=== PATIENT | female | born 1965 | race Caucasian/White ===

== ENCOUNTER 2024-08-11 14:29 | Emergency (ER) | payer MEDICAID ==
[~2024-08-11] VITALS: Ht 167.6 cm; Wt 72.6 kg
[2024-08-11 14:38] VITALS: BP_SYST 125; PULSE 85; RESP 22; TEMP 98.3; O2SAT 98
[2024-08-11] MEDS ORDERED: CEPH-548 PO (16:22)
[2024-08-11] MEDS ORDERED: CLIN-142 PO (16:22)
[2024-08-12] MEDS ORDERED: IBUP-1971 PO (22:46)
[2024-08-12] MEDS ORDERED: VIS25 PO (22:46)
== END 2024-08-11 17:00 | disposition home or self-care (01) ==
LOC: SED 14:29
DX: L03.113 Cellulitis of right upper limb (principal); F17.200 Nicotine dependence, unspecified, uncomplicated; F15.90 Other stimulant use, unspecified, uncomplicated; I10 Essential (primary) hypertension; Z71.6 Tobacco abuse counseling; Z79.2 Long term (current) use of antibiotics
CPT/HCPCS: 99284

== ENCOUNTER 2024-08-12 19:39 | Emergency (ER) | payer MEDICAID ==
[~2024-08-12] VITALS: Ht 154.9 cm; Wt 74.8 kg
[~2024-08-12 19:39] MED LIST: CEPH-548 PO; CLIN-142 PO
[2024-08-12 20:18] VITALS: BP_SYST 113; PULSE 68; RESP 19; TEMP 98.1; O2SAT 99
[2024-08-12] MEDS ORDERED: VIS25 PO (22:46)
[2024-08-12] MEDS ORDERED: IBUP-1971 PO (22:46)
[2024-08-12] MEDS: IBUPROFEN 800 MG TABLET PO ONE (22:52)
[2024-08-12 23:45] VITALS: BP_SYST 126; PULSE 68; RESP 18; TEMP 98.2; O2SAT 97
== END 2024-08-12 22:57 | disposition home or self-care (01) ==
LOC: SED 19:39
DX: L03.113 Cellulitis of right upper limb (principal); F41.9 Anxiety disorder, unspecified; I10 Essential (primary) hypertension; Z79.899 Other long term (current) drug therapy; Z79.2 Long term (current) use of antibiotics
CPT/HCPCS: 99283

== ENCOUNTER 2024-09-09 18:23 | Emergency (ER) | payer MEDICAID ==
[~2024-09-09] VITALS: Ht 154.9 cm; Wt 72.6 kg
[~2024-09-09 18:23] MED LIST changes: +IBUP-1971 PO; +VIS25 PO
[2024-09-09 18:48] VITALS: BP_SYST 125; PULSE 60; RESP 18; TEMP 98.2; O2SAT 99
[2024-09-09] MEDS ORDERED: TRAM50TA2 PO (20:40)
[2024-09-09] MEDS ORDERED: NAPR-688 PO (20:42)
[2024-09-09 20:53] VITALS: BP_SYST 133; PULSE 61; RESP 16; TEMP 96.1; O2SAT 99
== END 2024-09-09 20:53 | disposition home or self-care (01) ==
LOC: SED 18:23
DX: M67.813 Other specified disorders of tendon, right shoulder (principal); I10 Essential (primary) hypertension; Z79.899 Other long term (current) drug therapy; Z79.2 Long term (current) use of antibiotics
CPT/HCPCS: 73030; 99283